=== PATIENT | male | born 1970 | race Caucasian/White ===

== ENCOUNTER 2017-09-28 12:02 | Emergency (ER) | payer OTHER, SELFPAY ==
[2017-09-28 12:05] VITALS: BP 173/99; PULSE 97; RESP 18; O2SAT 100; BMI 28.5
--- NOTE | 2017-09-28 12:17 | PC.NURSE ---
strength equal bilaterally in upper arms. pt able to distinguish sharp/dull stimuli appropriately. no obvious deformity noted on bilateral upper extremities. -recent injury to neck/upper back/extremities. pt works as a chiropractor. pt reports feeling worried.
--- NOTE | 2017-09-28 12:20 | DI.RAD.S_ITS ---
PROCEDURE: XR CHEST 1V INDICATIONS: States he is not feeling right TECHNIQUE: One view of the chest was acquired. COMPARISON: None. FINDINGS: Surgical changes and devices: None. Lungs and pleura: No pleural effusions or pneumothorax. Lungs are clear. Mediastinum: Mediastinal contours appear normal. Heart size is normal. Bones and chest wall: No suspicious bony lesions. Overlying soft tissues appear unremarkable. IMPRESSION: No acute cardiopulmonary disease. Dictated by: iVctoriano Churchill M.D. on 09/28/2017 at 12:44 Approved by: Victoriano Churchill M.D. on 09/28/2017 at 12:44
--- NOTE | 2017-09-28 12:30 | DI.CT.S_ITS ---
PROCEDURE: CT CERVICAL SPINE WO CON INDICATIONS: Tingling to his left hand TECHNIQUE: Noncontrast 3 mm thick sections acquired from the skull base to the T4 level. Sagittal and coronal reformats were then constructed. For radiation dose reduction, the following was used: automated exposure control, adjustment of mA and/or kV according to patient size. COMPARISON: None. FINDINGS: Image quality: Excellent. Bones: No fractures or dislocations. Straightening of cervical curvature, which may be secondary to positioning or muscle spasm. Mild degenerative disc disease at C4-C5, C5-C6 and C6-C7. Visualized superior ribs are intact. Soft tissues: Prevertebral soft tissues are normal in thickness. No paravertebral hematomas. No apical pneumothoraces. There is mucosal thickening in the left maxilla sinus. IMPRESSION: 1. Mild degenerative disc disease. 2. Left maxillary sinus mucosal thickening. Dictated by: Victoriano Churchill M.D. on 09/28/2017 at 12:41 Approved by: Victoriano Churchill M.D. on 09/28/2017 at 12:43
--- NOTE | 2017-09-28 12:30 | DI.CT.S_ITS ---
PROCEDURE: CT HEAD/BRAIN WO CON INDICATIONS: States he is not feeling right with tingling to his left hand TECHNIQUE: Noncontrast 4.5 mm thick angled axial sections acquired from the foramen magnum to the vertex, with coronal and sagittal reformats. For radiation dose reduction, the following was used: automated exposure control, adjustment of mA and/or kV according to patient size. COMPARISON: None. FINDINGS: Image quality: Excellent. CSF spaces: Basal cisterns are patent. No extra-axial fluid collections. Ventricles are normal in size and shape. Brain: No midline shift. No intracranial masses or hemorrhage. Calderon-white matter interface is normal. Skull and face: Calvarium and visualized facial bones are intact, without suspicious lesions. Sinuses: Visualized sinuses and mastoids are clear. IMPRESSION: No acute intracranial abnormalities. Dictated by: Victoriano Chucrhill M.D. on 09/28/2017 at 12:38 Approved by: Victoriano Churchill M.D. on 09/28/2017 at 12:40
[2017-09-28 12:54] VITALS: BP 167/99; PULSE 84; RESP 18; O2SAT 100
--- NOTE | 2017-09-28 12:54 | ED_ITS ---
HPI - Extremity Injury (Upper) <INDIRA Douglas - Last Filed: 09/28/17 21:42> General Chief Complaint: Extremity Injury, Upper Stated Complaint: FEELING OFF, L HAD Time Seen by Provider: 09/28/17 12:14 History of Present Illness HPI narrative: 47-year-old male here for complaint of tingling into his left hand over the past couple of days. He denies any trauma to the left hand. He denies any trauma to the left hand. No pain to the left hand. He states that he has not been feeling right over the past couple of days as well. He denies any chest pain no shortness of breath. Had has some nausea but no vomiting. No diaphoresis. No fevers no chills. He denies any discomfort at this time. He denies any neck pain or trauma. He is ambulatory into the emergency room. Related Data Home Medications Medication Instructions Recorded Confirmed multivitamin [Multiple Vitamins] 1 tab PO QDAY #0 11/09/16 omega 8-ynf-wph-fish oil [Fish Oil] 1,000 mg PO #0 11/09/16 vitamin D3-folic acid [Ciferex] 1 cap PO #0 11/09/16 Previous Rx's Medication Instructions Recorded valacyclovir [Valtrex] 1,000 mg PO SEE INSTRUCTIONS #12 03/01/17 tab Allergies Allergy/AdvReac Type Severity Reaction Status Date / Time No Known Drug Allergies Allergy Verified 09/28/17 12:46 Review of Systems <INDIRA Douglas - Last Filed: 09/28/17 21:42> Constitutional Denies chills, Denies fever(s), Denies lethargy and Denies weakness Comments: States feels off Eyes Denies change in vision, Denies eye discharge, Denies irritation and Denies loss of vision ENT Ears, Nose, Mouth, and Throat: Denies change in voice, Denies neck pain and Denies sore throat Cardiovascular Denies chest pain, Denies irregular heart rhythm, Denies lightheadedness, Denies palpitations, Denies dyspnea, Denies dyspnea on exertion and Denies orthopnea Respiratory Denies cough, Denies dyspnea, Denies dyspnea on exertion and Denies wheezing Gastrointestinal Gastrointestinal: Denies abdominal pain, Denies change in bowel habits, Denies diarrhea, Denies nausea and Denies vomiting Genitourinary Denies hematuria, Denies flank pain, Denies urinary incontinence and Denies urinary urgency Musculoskeletal Denies neck pain Comments: Tingling to the left hand Integumentary/Breasts Denies pruritus, Denies erythema, Denies rash and Denies wounds Neurologic Denies confusion, Denies loss of vision and Denies weakness Psychiatric Denies anxiety, Denies confusion, Denies depression, Denies homicidal ideation and Denies suicidal ideation Endocrine Denies palpitations Hematologic/Lymphatic Denies easy bruising Allergic/Immunologic Denies wheezing Exam <INDIRA Douglas - Last Filed: 09/28/17 21:42> Initial Vital Signs Initial Vital Signs: Vital Signs Pulse Rate 97 H 09/28/17 12:05 Respiratory Rate 18 09/28/17 12:05 Blood Pressure 173/99 H 09/28/17 12:05 Pulse Oximetry 100 09/28/17 12:05 Const General: cooperative and well developed Nutritional Appearance: well nourished Orientation: alert, awake, oriented x3 and not confused [facility] Mouth: oral mucosae normal and moist mucous membranes Eyes General: appearance normal, both eyes and all related structures Eyelids: eyelids normal Conjunctivae: conjunctivae normal Sclera: sclerae normal Pupils: PERRL EOM: EOM intact bilaterally Neck Neck: normal visual inspection, trachea midline, No lymphadenopathy, No midline deformity and No JVD Lymphatic: No lymphedema Chest Chest: normal inspection of the chest Resp Effort & Inspection: normal respiratory effort, able to speak in complete sentences, no respiratory distress and no use of accessory muscles Auscultation: clear to auscultation bilaterally, no rales, no rhonchi and no wheezes Cardio Rate: regular rate Rhythm: regular rhythm Heart Sounds: no click, no gallops, no murmurs and no rubs Pulses: normal peripheral pulses Skin General: no rashes or lesions noted, No jaundice and No petechiae Neuro General: alert, oriented x3, gait normal and no focal motor deficits Speech: speech normal Motor: muscle tone normal throughout Sensory Exam: no sensory deficits noted Extrem Other: Left upper extremity normal exam distal sensation is intact. Distal range of motion is intact. Distal pulses are intact. No deformities no signs of trauma. <Ike Yost DO - Last Filed: 09/29/17 07:14> Initial Vital Signs Initial Vital Signs: Vital Signs Pulse Rate 97 H 09/28/17 12:05 Respiratory Rate 18 09/28/17 12:05 Blood Pressure 173/99 H 09/28/17 12:05 Pulse Oximetry 100 09/28/17 12:05 Course <INDIRA Douglas - Last Filed: 09/28/17 21:42> Orders Ordered: ED Orders 09/28/17 12:45 Complete Blood Count AUTO DIFF Stat Comprehensive Metabolic Panel Stat Troponin with CK Cardiac Panel Stat Vital Signs - 8 hr 09/28/17 13:48 Temperature 98.4 F Pulse Rate 70 Respiratory Rate 16 Blood Pressure 139/92 H Pulse Oximetry 100 <Ike Yost DO - Last Filed: 09/29/17 07:14> Orders Ordered: ED Orders 09/28/17 12:45 Complete Blood Count AUTO DIFF Stat Comprehensive Metabolic Panel Stat Troponin with CK Cardiac Panel Stat Vital Signs - 8 hr 09/28/17 13:48 Temperature 98.4 F Pulse Rate 70 Respiratory Rate 16 Blood Pressure 139/92 H Pulse Oximetry 100 MDM - Extremity Injury (Upper) <INDIRA Douglas - Last Filed: 09/28/17 21:42> Lab Data Result diagrams: 09/28/17 12:45 09/28/17 12:45 Lab Results 09/28/17 09/28/17 Range/Units 12:45 12:45 WBC 7.0 (4.5-11.0) X10^3/uL RBC 4.98 (4.5-5.9) X10^6/uL Hgb 15.7 (13.5-17.5) g/dL Hct 45.8 (41-53) % MCV 91.9 (80-100) fL MCH 31.6 (26-34) PG MCHC 34.4 (30-36) % RDW 13.9 (11.6-14.8) % Plt Count 293 (150-400) X10^3/uL Neut % (Auto) 68.1 (50-75) % Lymph % (Auto) 24.8 L (25-40) % [place] % (Auto) 5.6 (3-14) % Eos % (Auto) 0.8 L (2-4) % Baso % (Auto) 0.7 (0-2) % Neut # (Auto) 4800 (6542-5191) /uL Sodium 141 (137-145) mmol/L Potassium 3.6 (3.4-5.1) mmol/L Chloride 103 (98-107) mmol/L Carbon Dioxide 26 (22-32) mmol/L BUN 16 (9-20) mg/dL Creatinine 0.80 (0.66-1.25) mg/dL Estimated GFR > 60.0 (>60) mL/min BUN/Creatinine Ratio 20.0 (6-22) Glucose 101 H (70-100) mg/dL Calcium 9.0 (8.4-10.2) mg/dL Total Bilirubin 1.4 H (0.2-1.3) mg/dL AST 27 (17-59) IU/L ALT 34 (21-72) IU/L Alkaline Phosphatase 71 (38-126) U/L Total Creatine Kinase 86 (55-170) U/L Troponin I < 0.012 (0.01-0.034) ng/mL Total Protein 7.5 (6.3-8.2) g/dL Albumin 4.6 (3.5-5.0) g/dL Globulin 2.9 (1.7-4.1) g/dL Albumin/Globulin Ratio 1.6 (1.0-2.8) Imaging Data CT scan - head: Radiologist's impression: PROCEDURE: CT HEAD/BRAIN WO CON INDICATIONS: States he is not feeling right with tingling to his left hand TECHNIQUE: Noncontrast 4.5 mm thick angled axial sections acquired from the foramen magnum to the vertex, with coronal and sagittal reformats. For radiation dose reduction, the following was used: automated exposure control, adjustment of mA and/or kV according to patient size. COMPARISON: None. FINDINGS: Image quality: Excellent. CSF spaces: Basal cisterns are patent. No extra-axial fluid collections. Ventricles are normal in size and shape. Brain: No midline shift. No intracranial masses or hemorrhage. Calderon-white matter interface is normal. Skull and face: Calvarium and visualized facial bones are intact, without suspicious lesions. Sinuses: Visualized sinuses and mastoids are clear. IMPRESSION: No acute intracranial abnormalities. Dictated by: Victoriano Churchill M.D. on 09/28/2017 at 12:38 Approved by: Victoriano Churchill M.D. on 09/28/2017 at 12:40 c spine : Radiologist's impression: PROCEDURE: CT CERVICAL SPINE WO CON INDICATIONS: Tingling to his left hand TECHNIQUE: Noncontrast 3 mm thick sections acquired from the skull base to the T4 level. Sagittal and coronal reformats were then constructed. For radiation dose reduction, the following was used: automated exposure control, adjustment of mA and/or kV according to patient size. COMPARISON: None. FINDINGS: Image quality: Excellent. Bones: No fractures or dislocations. Straightening of cervical curvature, which may be secondary to positioning or muscle spasm. Mild degenerative disc disease at C4- C5, C5-C6 and C6-C7. Visualized superior ribs are intact. Soft tissues: Prevertebral soft tissues are normal in thickness. No paravertebral hematomas. No apical pneumothoraces. There is mucosal thickening in the left maxilla sinus. IMPRESSION: 1. Mild degenerative disc disease. 2. Left maxillary sinus mucosal thickening. Dictated by: Victoriano Churchill M.D. on 09/28/2017 at 12:41 Approved by: Victoriano Churchill M.D. on 09/28/2017 at 12:43 Chest x-ray: Radiologist's impression: PROCEDURE: XR CHEST 1V INDICATIONS: States he is not feeling right TECHNIQUE: One view of the chest was acquired. COMPARISON: None. FINDINGS: Surgical changes and devices: None. Lungs and pleura: No pleural effusions or pneumothorax. Lungs are clear. Mediastinum: Mediastinal contours appear normal. Heart size is normal. Bones and chest wall: No suspicious bony lesions. Overlying soft tissues appear unremarkable. IMPRESSION: No acute cardiopulmonary disease. Dictated by: Victoriano Churchill M.D. on 09/28/2017 at 12:44 Approved by: Victoriano Churchill M.D. on 09/28/2017 at 12:44 ECG Data Interpretation: EKG shows normal sinus rhythm with no ST elevation or depression. No ectopy. Ventricular rate of 83. Pr interval of 146. QRS duration of 101. QT of 366 MDM Narrative Medical decision making narrative: CT of the head and neck was obtained and shows mild degenerative disc disease however otherwise was unremarkable. Chest x -ray was negative for any acute findings. EKG shows sinus rhythm with no ST elevation or depression and no ectopy. CBC and Chem panel were obtained and were unremarkable. Troponin was negative. Patient's blood pressure was elevated in the emergency room today discuss this with the patient and recommend that he monitor his blood pressure and keep a log and follow up with primary care provider next week for further evaluation. If continued tingling to the left hand MRI of the neck may be warranted. Follow up with primary care provider next week. For any worsening symptoms return to the emergency room. <Ike Yost, DO - Last Filed: 09/29/17 07:14> Lab Data Lab Results 09/28/17 09/28/17 Range/Units 12:45 12:45 WBC 7.0 (4.5-11.0) X10^3/uL RBC 4.98 (4.5-5.9) X10^6/uL Hgb 15.7 (13.5-17.5) g/dL Hct 45.8 (41-53) % MCV 91.9 (80-100) fL MCH 31.6 (26-34) PG MCHC 34.4 (30-36) % RDW 13.9 (11.6-14.8) % Plt Count 293 (150-400) X10^3/uL Neut % (Auto) 68.1 (50-75) % Lymph % (Auto) 24.8 L (25-40) % [place] % (Auto) 5.6 (3-14) % Eos % (Auto) 0.8 L (2-4) % Baso % (Auto) 0.7 (0-2) % Neut # (Auto) 4800 (2962-3494) /uL Sodium 141 (137-145) mmol/L Potassium 3.6 (3.4-5.1) mmol/L Chloride 103 (98-107) mmol/L Carbon Dioxide 26 (22-32) mmol/L BUN 16 (9-20) mg/dL Creatinine 0.80 (0.66-1.25) mg/dL Estimated GFR > 60.0 (>60) mL/min BUN/Creatinine Ratio 20.0 (6-22) Glucose 101 H (70-100) mg/dL Calcium 9.0 (8.4-10.2) mg/dL Total Bilirubin 1.4 H (0.2-1.3) mg/dL AST 27 (17-59) IU/L ALT 34 (21-72) IU/L Alkaline Phosphatase 71 (38-126) U/L Total Creatine Kinase 86 (55-170) U/L Troponin I < 0.012 (0.01-0.034) ng/mL Total Protein 7.5 (6.3-8.2) g/dL Albumin 4.6 (3.5-5.0) g/dL Globulin 2.9 (1.7-4.1) g/dL Albumin/Globulin Ratio 1.6 (1.0-2.8) Discharge Plan Departure Patient Disposition: Home, Self-Care Clinical Impression: Numbness and tingling of left hand Discharge Date/Time: 09/28/17 13:48 Interventions: ED Discharge Assessment Last Done: 09/28/17 13:48 Instructions: DI for Numbness/tingling Activity Restrictions/Additional Instructions: CT of the head neck were obtained and were unremarkable with the exception of mild degenerative disc disorder. Chest x-ray was obtained and was negative for any acute findings. EKG was unremarkable. CBC Chem panel and troponin was negative. Blood pressure was elevated today. Recommend monitoring blood pressure and keep a log and bring results with you to primary care provider. If continued tingling to the left hand recommend discussing with her primary care provider of obtain an MRI of the neck to ensure no radiculopathy. For any worsening symptoms return to the emergency room. Prescriptions: No Action multivitamin [Multiple Vitamins] 1 EACH tablet 1 tab PO QDAY Qty: 0 RF: 0 omega 4-qru-zrx-fish oil [Fish Oil] 1,000 MG capsule 1,000 mg PO Qty: 0 RF: 0 vitamin D3-folic acid [Ciferex] 3,775 UNITS/1 MG capsule 1 cap PO Qty: 0 RF: 0 valacyclovir [Valtrex] 1,000 MG tablet 1,000 mg PO SEE INSTRUCTIONS Qty: 12 RF: 0 Referrals: Brandie Sahu DO [Primary Care Provider] - <Ike Yost DO - Last Filed: 09/29/17 07:14> Cosign ED Attending Cosaubrieature Attestation: I was available for consultation during this patient's emergency department encounter
[2017-09-28 12:58] LABS: Add Manual Diff / Slide Review NO; Basophils Percent Auto 0.7 % (0-2); Eosinophils Percent Auto 0.8 % (2-4); Hematocrit 45.8 % (41-53); Hemoglobin 15.7 g/dL (13.5-17.5); Lymphocytes Percent Auto 24.8 % (25-40); Mean Corpuscular HGB Conc 34.4 % (30-36); Mean Corpuscular Hemoglobin 31.6 PG (26-34); Mean Corpuscular Volume 91.9 fL (80-100); Monocytes Percent Auto 5.6 % (3-14); Neutrophils Absolute Auto 4800 /uL (3000-5900); Neutrophils Percent Auto 68.1 % (50-75); Platelet Count 293 X10^3/uL (150-400); Red Blood Cell Count 4.98 X10^6/uL (4.5-5.9); Red Cell Distribution Width 13.9 % (11.6-14.8)
[2017-09-28 13:07] LABS: Alanine Aminotransferase 34 IU/L (21-72); Albumin 4.6 g/dL (3.5-5.0); Albumin Globulin Ratio 1.6 (1.0-2.8); Alkaline Phosphatase 71 U/L (38-126); Aspartate Aminotransferase 27 IU/L (17-59); Bilirubin Total 1.4 mg/dL (0.2-1.3); Blood Urea Nitrogen 16 mg/dL (9-20); Carbon Dioxide 26 mmol/L (22-32); Chloride 103 mmol/L (98-107); Creatine Kinase 86 U/L (55-170); Estimated Glomerular Filt Rate > 60.0 mL/min (>60); Globulin 2.9 g/dL (1.7-4.1); Glucose 101 mg/dL (70-100); HEMOLYSIS < 15 (0-50); Potassium 3.6 mmol/L (3.4-5.1); Sodium 141 mmol/L (137-145); Total Protein 7.5 g/dL (6.3-8.2)
[2017-09-28 13:20] LABS: Troponin I < 0.012 ng/mL (0.01-0.034)
[2017-09-28 13:48] VITALS: BP 139/92; PULSE 70; RESP 16; TEMP 36.9; O2SAT 100
== END 2017-09-28 13:48 | disposition home or self-care (01) ==
PROVIDERS: Emergency Provider Nurse Practitioner Family; PCP Family Medicine
DX: R20.0 Anesthesia of skin (principal)
CPT/HCPCS: 36591; 70450; 71045; 72125; 80053; 81003; 82550; 82553; 82962; 84484; 85025; 93005; 93010; 99283; 99285